=== PATIENT | male | born 1965 | race Caucasian/White ===

== ENCOUNTER 2021-08-05 05:50 | Emergency (ER) | payer SELFPAY ==
[~2021-08-05] VITALS: Ht 180.3 cm; Wt 90.9 kg
[2021-08-05 06:59] LABS: BASO # 0.02 K/mm3 (0.02-0.10); EOS # 0.06 K/mm3 (0.04-0.40); EOS % 0.8 % (0.0-4.0); HEMATOCRIT 48.9 % (42.0-52.0); HEMOGLOBIN 15.8 g/dL (13.5-18.0); LYMPH# 1.69 K/mm3 (1.50-4.00); MEAN CELL VOLUME 87 fl (78-100); MEAN CORPUSCULAR HEMOGLOBIN 28 pg (27-31); MEAN CORPUSCULAR HGB CONC 32 g/dL (33-37); MEAN PLATELET VOLUME 11.2 fl (7.4-10.4); MONO # 0.42 K/mm3 (0.20-0.80); NEU # 5.43 K/mm3 (1.40-6.50); PLATELET COUNT 178 K/mm3 (130-400); RED CELL DISTRIBUTION WIDTH 13.8 % (11.5-14.5); WHITE BLOOD COUNT 7.6 K/mm3 (4.8-10.8)
[2021-08-05 07:48] LABS: ALBUMIN 4.2 g/dL (3.5-5.0); POTASSIUM 4.2 mmol/L (3.5-5.1); SODIUM 142 mmol/L (136-145)
[2021-08-05 07:50] LABS: CALCIUM 9.7 mg/dL (8.3-10.5)
[2021-08-05 07:51] LABS: GLUCOSE 147 mg/dL (75-110)
[2021-08-05 07:52] LABS: CARBON DIOXIDE 24 mmol/L (22-29)
[2021-08-05 07:53] LABS: TOTAL BILIRUBIN 0.6 mg/dL (0.2-1.2)
[2021-08-05 07:56] LABS: AST-SGOT 22 U/L (5-34)
[2021-08-05 07:57] LABS: ALT/SGPT 24 U/L (0-55)
[2021-08-05 09:26] LABS: URINE APPEARANCE HAZY; URINE BILIRUBIN NEGATIVE (NEGATIVE); URINE COLOR DK YELLOW; URINE GLUCOSE NEGATIVE (NEGATIVE); URINE KETONE NEGATIVE (NEGATIVE); URINE NITRATE NEGATIVE (NEGATIVE); URINE PROTEIN(semi-quant) TRACE (NEGATIVE); URINE UROBILINOGEN NORMAL (NORMAL)
[2021-08-05 09:27] LABS: URINE BLOOD TRACE (NEGATIVE); URINE LEUKOCYTE ESTERASE TRACE (NEGATIVE); URINE MUCUS PRESENT (NOT PRESENT)
[2021-08-05] MEDS ORDERED: NORCO 325 MG-7.1 TA1 PO (10:34)
[2021-08-05] MEDS ORDERED: FLOMAX0.4 MG PO (10:34)
[2021-08-05] MEDS ORDERED: ZOFRAN ODT4 MG PO (10:34)
[2021-08-05 10:56] VITALS: BP 115/66
== END 2021-08-05 11:04 | disposition home or self-care (01) ==
LOC: ED 05:50
PROVIDERS: Nurse Practitioner
DX: N20.2 Calculus of kidney with calculus of ureter (principal); Z87.442 Personal history of urinary calculi
CPT/HCPCS: J1885; J2270; J2405; J3010; J7030

== ENCOUNTER 2023-04-22 12:45 | Outpatient (RCR) | payer BC ==
[~2023-04-22] VITALS: Ht 180.3 cm; Wt 93.4 kg
[~2023-04-22 12:45] MED LIST: FLOMAX0.4 MG PO; NORCO 325 MG-7.1 TA1 PO; ZOFRAN ODT4 MG PO
[2023-05-14] MEDS ORDERED: CLOPIDOGREL75 M2 PO (16:02)
[2023-05-14] MEDS ORDERED: ATORVASTATIN CA40 MG PO (16:02)
[2023-05-14] MEDS ORDERED: LOPRESSOR 225 MG/TAB PO (16:03)
[2023-05-14] MEDS ORDERED: DILTIAZEM 24HR120 M2 PO (16:03)
[2023-05-14] MEDS ORDERED: ASPIRIN E.C. 8181 MG (16:33)
== END 2023-05-19 | disposition home or self-care (01) ==
LOC: CARDREHAB
DX: Z48.812 Encounter for surgical aftercare following surgery on the circulatory system (principal); Z95.1 Presence of aortocoronary bypass graft

== ENCOUNTER 2023-04-29 09:10 | Outpatient (RCR) | payer BC ==
[2023-05-14] MEDS ORDERED: ATORVASTATIN CA40 MG PO (16:02)
[2023-05-14] MEDS ORDERED: CLOPIDOGREL75 M2 PO (16:02)
[2023-05-14] MEDS ORDERED: LOPRESSOR 225 MG/TAB PO (16:03)
[2023-05-14] MEDS ORDERED: DILTIAZEM 24HR120 M2 PO (16:03)
[2023-05-14] MEDS ORDERED: ASPIRIN E.C. 8181 MG (16:33)
== END 2023-05-19 | disposition home or self-care (01) ==
LOC: OT
DX: R20.0 Anesthesia of skin (principal)

== ENCOUNTER 2023-05-14 15:39 | Emergency (ER) | payer BC ==
[~2023-05-14] VITALS: Ht 182.9 cm; Wt 90.9 kg
[2023-05-14] MEDS ORDERED: ATORVASTATIN CA40 MG PO (16:02)
[2023-05-14] MEDS ORDERED: CLOPIDOGREL75 M2 PO (16:02)
[2023-05-14] MEDS ORDERED: LOPRESSOR 225 MG/TAB PO (16:03)
[2023-05-14] MEDS ORDERED: DILTIAZEM 24HR120 M2 PO (16:03)
[2023-05-14 16:27] LABS: BASO # 0.05 K/mm3 (0.02-0.10); EOS # 0.49 K/mm3 (0.04-0.40); EOS % 5.3 % (0.0-4.0); HEMATOCRIT 38.7 % (42.0-52.0); HEMOGLOBIN 12.3 g/dL (13.5-18.0); LYMPH# 1.69 K/mm3 (1.50-4.00); MEAN CELL VOLUME 85 fl (78-100); MEAN CORPUSCULAR HEMOGLOBIN 27 pg (27-31); MEAN CORPUSCULAR HGB CONC 32 g/dL (33-37); MEAN PLATELET VOLUME 9.3 fl (7.4-10.4); MONO # 0.87 K/mm3 (0.20-0.80); NEU # 6.08 K/mm3 (1.40-6.50); PLATELET COUNT 290 K/mm3 (130-400); RED BLOOD COUNT 4.55 M/mm3 (4.20-5.60); RED CELL DISTRIBUTION WIDTH 13.6 % (11.5-14.5); WHITE BLOOD COUNT 9.2 K/mm3 (4.8-10.8)
[2023-05-14] MEDS ORDERED: ASPIRIN E.C. 8181 MG (16:33)
[2023-05-14 16:41] LABS: SODIUM 138 mmol/L (136-145)
[2023-05-14 16:42] LABS: CALCIUM 9.6 mg/dL (8.3-10.5)
[2023-05-14 16:44] LABS: TOTAL PROTEIN 7.3 g/dL (6.4-8.3)
[2023-05-14 16:45] LABS: CARBON DIOXIDE 28 mmol/L (22-29); GLUCOSE 92 mg/dL (75-110)
[2023-05-14 16:46] LABS: TOTAL BILIRUBIN 0.3 mg/dL (0.2-1.2)
[2023-05-14 16:49] LABS: AST-SGOT 17 U/L (5-34)
[2023-05-14 16:52] LABS: ALT/SGPT 24 U/L (0-55)
[2023-05-14 16:59] LABS: TROPONIN-I < 0.030 ng/mL (0.00-0.033)
[2023-05-14 17:44] LABS: D-DIMER 4.89 mg/L FEU (0.15-0.50)
[2023-05-14 18:13] VITALS: BP 110/78
== END 2023-05-14 18:14 | disposition home or self-care (01) ==
LOC: ED 15:39
PROVIDERS: Nurse Practitioner
DX: J90 Pleural effusion, not elsewhere classified (principal); R79.89 Other specified abnormal findings of blood chemistry; Z95.1 Presence of aortocoronary bypass graft

== ENCOUNTER 2023-05-20 08:29 | Outpatient (RCR) | payer BC ==
[~2023-05-20 08:29] MED LIST changes: +ASPIRIN E.C. 8181 MG; +ATORVASTATIN CA40 MG PO; +CLOPIDOGREL75 M2 PO; +DILTIAZEM 24HR120 M2 PO; +LOPRESSOR 225 MG/TAB PO
== END 2023-06-17 | disposition home or self-care (01) ==
LOC: CARDREHAB
DX: Z48.812 Encounter for surgical aftercare following surgery on the circulatory system (principal); Z95.1 Presence of aortocoronary bypass graft

== ENCOUNTER → 2023-05-26 | Outpatient (CLI) | payer BC | LOC: RAD 14:57 | DX: J98.11 Atelectasis (principal); J90 Pleural effusion, not elsewhere classified; Z95.1 Presence of aortocoronary bypass graft ==

== ENCOUNTER → 2023-06-08 | Outpatient (CLI) | payer BC | LOC: RAD 09:14 | DX: Z95.1 Presence of aortocoronary bypass graft (principal) ==

== ENCOUNTER 2023-07-27 10:00 | Outpatient (RCR) | payer BC | END 2023-08-17 | disposition home or self-care (01) | LOC: CARDREHAB | DX: Z48.812 Encounter for surgical aftercare following surgery on the circulatory system (principal); Z95.1 Presence of aortocoronary bypass graft ==